=== PATIENT | female | born 1935 | race American Indian/Alaskan Native ===

== ENCOUNTER 2016-10-18 19:24 | Inpatient (IN) | payer MEDICARE, MEDICAID ==
[2016-10-18 19:24] VITALS: BMI 27.3
[2016-10-18] MEDS ORDERED: Piperacillin/Tazobact 3.375 gm 100 ML IVPB STA (19:36)
[2016-10-18] MEDS ORDERED: Sodium Chloride 0.9% 500 ML IV ONE (19:36)
--- NOTE | 2016-10-18 19:49 | C.PDOC ---
History Of Present Illness 81 year old female with a Hx of dementia, contracted with a-fib and on coumadin who was sent to the ER by [facility] for a complaint of SOB. As per [facility], patient was found mildly hypoxic and tachypneic; in the ER patient is febrile. Patient is nonverbal at baseline; however, she has not indicated at sort of physical complaint at this time. Time Seen by Provider: 10/18/16 19:33 Chief Complaint (Nursing): Shortness Of Breath History Per: Other (Residential) History/Exam Limitations: no limitations Onset/Duration Of Symptoms: Hrs Initiating Event: Other (Not Known) Current Respiratory Medications: None Associated Symptoms: Fever Recent travel outside of the [place]: No Past Medical History Reviewed: Historical Data, Nursing Documentation, Vital Signs Vital Signs: Last Vital Signs Temp 101.8 F H 10/18/16 19:30 Pulse 90 10/18/16 19:30 Resp 36 H 10/18/16 20:44 BP 108/50 L 10/18/16 19:30 Pulse Ox 100 10/18/16 21:06 - Medical History PMH: Alzheimer's Disease, Anemia, Anxiety, Arthritis, Atrial Fibrillation, CAD, Cardia Arrhythmia, Dementia, Deep Vein Thrombosis, Gastritis, HTN, Hypercholesterolemia, Pancreatitis, Peripheral Edema, Rheumatoid Arthritis, Seizures Surgical History: Endoscopy, Pacemaker - [facility] Procedures CLOSED ENDOSCOPIC BIOPSY OF LARGE INTESTINE (10/06/12) ENTERAL INFUSION OF CONCENTRATED NUT. SUBSTANCES (11/18/13) ESOPHAGOGASTRODUODENOSCOPY [EGD] W/CLOSED BIOPSY (12/08/12) INSERTION OF FEEDING DEVICE INTO STOMACH, ENDO (07/25/15) INTRODUCTION OF NUTRITIONAL INTO UP GI, VIA OPENING (07/25/15) OTHER ENDOSCOPY OF SM INTEST (12/19/14) PACKED CELL TRANSFUSION (12/14/13) PERCUTANEOUS [ENDOSCOPIC] GASTROSTOMY [PEG] (12/19/12) REPLACE GASTROSTOMY TUBE (12/19/14) VACCINATION NEC (11/18/13) VENOUS CATHETERIZATION NEC (11/18/13) Family History: States: Unknown Family Hx - Social History Hx Tobacco Use: No Hx Alcohol Use: No Hx Substance Use: No - Immunization History Hx Tetanus Toxoid Vaccination: No (no record from [facility]) Hx Influenza Vaccination: No (no record from [facility]) Hx Pneumococcal Vaccination: No (no record from [facility]) Review Of Systems Review Of Systems: ROS cannot be obtained secondary to pt's inabilty to answer questions. Physical Exam - Physical Exam Appears: Non-toxic, Other (Contracted, chronically ill female) Skin: Normal Color, Warm, Dry Head: Atraumatic, Normacephalic Oral Mucosa: Moist Neck: Normal, Supple Chest: Symmetrical, No Tenderness Cardiovascular: Rhythm Regular, No Murmur Respiratory: No Rales, No Rhonchi, No Wheezing, Other (Course breath sounds bilaterally) Gastrointestinal/Abdominal: Soft, No Tenderness Neurological/Psych: Other (Patient at baseline as per [facility]) ED Course And Treatment - Laboratory Results Result Diagrams: 10/18/16 20:18 10/18/16 20:18 O2 Sat by Pulse Oximetry: 100 (Room air) Pulse Ox Interpretation: Normal Medical Decision Making Medical Decision Making: Impression: 81 year old demented female with SOB. suspect sepsis/pna. pt baseline contracted. limited history provided. pt noted to be full code as per [facility] record Plan: * Blood work * EKG * CXR * Urinalysis * Tylenol * Vancocin * Piperacillin * IV fluids * 900: pt reassessed: satting upper 90s on nc. cxr: torterious aorta, opacity left sided. case discussed with dr vaughn. accepts tele. ekg nsr 83 no specific later al changes no interval change Disposition - Disposition Disposition: HOSPITALIZED Disposition Time: 21:05 Condition: GUARDED - Clinical Impression Clinical Impression: Sepsis, Pneumonia, Hypernatremia - Scribe Statement The provider has reviewed the documentation as recorded by the Scribjuli Ko All medical record entries made by the Tienibjuli were at my direction and personally dictated by me. I have reviewed the chart and agree that the record accurately reflects my personal performance of the history, physical exam, medical decision making, and the department course for this patient. I have also personally directed, reviewed, and agree with the discharge instructions and disposition. Decision To Admit - Pt Status Changed To: Hospital Disposition Of: Inpatient - Admit Certification Admit to Inpatient:: After my assessment, the patient will require hospitalization for at least two midnights. This is because of the severity of symptoms shown, intensity of services needed, and/or the medical risk in this patient being treated as an outpatient. - InPatient: Physician Admission Certification: I certify that this patient requires 2 or more midnights of care for the following reason:: pt with sepsis, pna, hypernatremia, needs ivf and antibiotics - . Bed Request Type: Telemetry Admitting Physician: Tha Vaughn Patient Diagnosis: Sepsis, Pneumonia, Hypernatremia
[2016-10-18 20:27] LABS: VENOUS BLOOD GAS BASE EXCESS -0.7 mmol/L (0.0-2.0); VENOUS BLOOD GAS PCO2 56 mmHg (40-60); VENOUS BLOOD PH 7.29 (7.32-7.43)
[2016-10-18] MEDS ORDERED: Piperacillin/Tazobact 3.375 gm 100 ML IVPB ONE (20:36)
[2016-10-18] MEDS ORDERED: Sodium Chloride 0.9% 1,000 ML ONE (20:36)
[2016-10-18 20:37] LABS: INR 2.7
[2016-10-18 20:38] LABS: BILIRUBIN,TOTAL 0.7 mg/dL (0.2-1.3)
[2016-10-18 20:39] LABS: CALCIUM 8.4 mg/dl (8.6-10.4); TOTAL PROTEIN 7.7 g/dL (6.3-8.3)
[2016-10-18 20:49] LABS: POTASSIUM 5.9 mmol/L (3.6-5.2)
[2016-10-18 20:51] LABS: TROPONIN I 0.018 ng/mL (0.00-0.120)
[2016-10-18 20:52] LABS: BASO % 0.2 % (0.0-2.0); EOS % 0.1 % (0.0-4.0); HEMATOCRIT 47.9 % (34.0-47.0); LYMPH % 22.9 % (20.0-40.0); MONO # 0.7 K/uL (0.0-0.8); MONO % 8.2 % (0.0-10.0); NRBC % 0.1 % (0.0-2.0); RED CELL DISTRIBUTION WIDTH 18.4 % (11.5-14.5); WHITE BLOOD COUNT 8.6 K/uL (4.8-10.8)
[2016-10-18 21:00] LABS: TRANSITIONAL EPITHIAL < 1 /hpf (0-3); URINE BACTERIA FEW (<OCC); URINE BILIRUBIN NEGATIVE (NEGATIVE); URINE BLOOD NEGATIVE (NEGATIVE); URINE COLOR YELLOW (YELLOW); URINE GLUCOSE (UA) NORMAL (Normal); URINE KETONE NEGATIVE (NEGATIVE); URINE LEUKOCYTE ESTERASE TRACE Leu/uL (Negative); URINE PROTEIN 2+ mg/dL (NEGATIVE); WBC URINE 12 /hpf (0-5)
[2016-10-18] MEDS ORDERED: Acetaminophen 650mg/20.3ml solution UD GT PRN (21:07)
[2016-10-18] MEDS ORDERED: MAGNESIUM HYDROXIDE PO PRN (21:07)
[2016-10-18] MEDS ORDERED: Vancomycin 1 GM 1 GM/250 ML BAG IVPB ONE (21:14)
[2016-10-18] MEDS ORDERED: Sodium Chloride 0.45% 1,000 ML IV SCH (22:00)
[2016-10-18] MEDS ORDERED: LAMOTRIGINE 25 MG GT SCH (22:00)
[2016-10-19] MEDS: Piperacillin/Tazobact 3.375 GM in Sodium Chloride 100 ML IVPB SCH ×2 (02:07→09:14)
[2016-10-19 08:01] LABS: INR 2.9
[2016-10-19 08:02] LABS: POTASSIUM 4.7 mmol/L (3.6-5.2)
[2016-10-19 08:04] LABS: ALB/GLOB RATIO 0.9 (1.0-2.1); BILIRUBIN,TOTAL 0.8 mg/dL (0.2-1.3); TOTAL PROTEIN 6.5 g/dL (6.3-8.3)
[2016-10-19 08:05] LABS: CALCIUM 8.1 mg/dl (8.6-10.4)
[2016-10-19] MEDS: Albuterol 0.042% Inhal Sol (1.25 mg/3 mL) UD INH SCH ×3 (08:05→19:32)
[2016-10-19 08:07] LABS: BASO % 0.4 % (0.0-2.0); EOS # 0.1 K/uL (0.0-0.7); EOS % 0.8 % (0.0-4.0); HEMATOCRIT 39.3 % (34.0-47.0); LYMPH # 0.9 K/uL (1.0-4.3); LYMPH % 10.3 % (20.0-40.0); MEAN CELL VOLUME 88.6 fL (81.0-99.0); MEAN CORPUSCULAR HEMOGLOBIN 26.5 pg (27.0-31.0); MEAN CORPUSCULAR HGB CONC 29.9 g/dL (33.0-37.0); MONO # 0.4 K/uL (0.0-0.8); MONO % 4.9 % (0.0-10.0); RED CELL DISTRIBUTION WIDTH 18.2 % (11.5-14.5)
[2016-10-19] MEDS ORDERED: VALPROIC ACID PO SCH (10:00)
[2016-10-19] MEDS ORDERED: Home Med 1 UNIT (Simvastatin [Simvastatin] 5 MG) GT SCH (10:00)
[2016-10-19] MEDS ORDERED: AMINO ACIDS PO SCH (10:00)
[2016-10-19] MEDS ORDERED: PROTEIN HYDROLYS PO SCH (10:00)
[2016-10-19] MEDS ORDERED: FOLIC ACID 1 MG GT SCH (10:00)
--- NOTE | 2016-10-19 10:32 | RAD ---
PROCEDURE: CHEST RADIOGRAPH, 1 VIEW HISTORY: chest pain COMPARISON: Comparison chest 08/02/2015 FINDINGS: LUNGS: Poor inspiration with low lung volumes, minor crowded bronchovascular markings and mild bibasilar atelectasis. Developing lower lobe infiltrates could be excluded followup radiographs. PLEURA: No pneumothorax or pleural fluid seen. CARDIOVASCULAR: Heart is enlarged. 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 Follow-up of CT scan of the chest could be performed to confirm. No change single lead pacemaker. OSSEOUS STRUCTURES: No significant abnormalities. VISUALIZED UPPER ABDOMEN: Normal. OTHER FINDINGS: None. IMPRESSION: Poor inspiration with low lung volumes, minor crowded bronchovascular markings and mild bibasilar atelectasis. Developing lower lobe infiltrates could be excluded followup radiographs. . Follow-up CT scan of the chest could be performed to confirm. Note this report was placed in PA review folder followup.
[2016-10-19] MEDS: Azithromycin 500 MG in Sodium Chloride 0.9% 250 ML IVPB SCH (10:36)
[2016-10-19] MEDS: Multiple Vitamins Oral Solution PO SCH (11:49)
[2016-10-19] MEDS: Piperacill/Tazo 3.375gm in Dex 3.375 GM/50 ML BAG IVPB SCH ×2 (14:06→20:28)
[2016-10-19] MEDS ORDERED: Magnesium Hydroxide Susp 30 ml UD PO PRN (14:30)
[2016-10-19] MEDS ORDERED: Valproic Acid 250 mg/5 ml UD Cup PO SCH (15:00)
--- NOTE | 2016-10-19 15:51 | CP.PCM.CON ---
History of Present Illness - History of Present Illness History of Present Illness: 81 year old female with a Hx of dementia, contracted with a-fib and on coumadin who was sent to the ER by shelter for a complaint of SOB. As per shelter, patient was found mildly hypoxic and tachypneic; in the ER patient is febrile. Patient is nonverbal at baseline; however, she has not indicated at sort of physical complaint at this time. - Medical History PMH: Alzheimer's Disease, Anemia, Anxiety, Arthritis, Atrial Fibrillation, CAD, Cardia Arrhythmia, Dementia, Deep Vein Thrombosis, Gastritis, HTN, Hypercholesterolemia, Pancreatitis, Peripheral Edema, Rheumatoid Arthritis, Seizures Surgical History: Endoscopy, Pacemaker - [facility] Procedures CLOSED ENDOSCOPIC BIOPSY OF LARGE INTESTINE (10/06/12) ENTERAL INFUSION OF CONCENTRATED NUT. SUBSTANCES (11/18/13) ESOPHAGOGASTRODUODENOSCOPY [EGD] W/CLOSED BIOPSY (12/08/12) INSERTION OF FEEDING DEVICE INTO STOMACH, ENDO (07/25/15) INTRODUCTION OF NUTRITIONAL INTO UP GI, VIA OPENING (07/25/15) OTHER ENDOSCOPY OF SM INTEST (12/19/14) PACKED CELL TRANSFUSION (12/14/13) PERCUTANEOUS [ENDOSCOPIC] GASTROSTOMY [PEG] (12/19/12) REPLACE GASTROSTOMY TUBE (12/19/14) VACCINATION NEC (11/18/13) VENOUS CATHETERIZATION NEC (11/18/13) Review of Systems - Review of Systems Systems not reviewed;Unavailable: Altered Mental Status - Constitutional Constitutional: absent: As Per HPI, Anorexia, Chills, Daytime Sleepiness, Excessive Sweating, Fatigue, Fever, Frequent Falls, Headache, Increased Appetite , Lethargy, Malaise, Night Sweats, Snoring, Sleep Apnea, Weight Gain, Weight Loss, Weakness, Other - EENT Eyes: absent: As Per HPI, Blind Spots, Blurred Vision, Change in Vision, Decreased Night Vision, Diplopia, Discharge, Dry Eye, Exophthalmos, Floaters, Irritation, Itchy Eyes, Loss of Peripheral Vision, Pain, Photophobia, Requires Corrective Lenses, Sees Flashes, Spots in Vision, Tunnel Vision, Other Visual Disturbances, Loss of Vision, Other Ears: absent: As Per HPI, Decreased Hearing, Ear Discharge, Ear Pain, Tinnitus, Abnormal Hearing, Disequilibrium, Dizziness, Other Nose/Mouth/Throat: absent: As Per HPI, Epistaxis, Nasal Congestion, Nasal Discharge, Nasal Obstruction, Nasal Trauma, Nose Pain, Post Nasal Drip, Sinus Pain, Sinus Pressure, Bleeding Gums, Change in Voice, Dental Pain, Dry Mouth, Dysphagia, Halitosis, Hoarsness, Lip Swelling, Mouth Lesions, Mouth Pain, Odynophagia, Sore Throat, Throat Swelling, Tongue Swelling, Facial Pain, Neck Pain, Neck Mass, Other - Breasts Breasts: absent: As Per HPI, Change in Shape, Mass, Pain, Nipple Discharge, Nipple Inversion, Skin Changes, Swelling, Other - Cardiovascular Cardiovascular: As Per HPI - Respiratory Respiratory: As Per HPI, Cough, Dyspnea - Gastrointestinal Gastrointestinal: absent: As Per HPI, Abdominal Pain, Belching, Bloating, Change in Bowel Habits, Change in Stool Character, Coffee Ground Emesis, Constipation, Cramping, Diarrhea, Dyspepsia, Dysphagia, Early Satiety, Excessive Flatus, Fecal Incontinence, Heartburn, Hematemesis, Hematochezia, Loose Stools, Melena, Nausea, Odynophagia, Temesmus, Vomiting, Other - Reproductive: Female Reproductive:Female: absent: As Per HPI, Amenorrhea, Amenorrhea/ Control, Currently Menstual, Cycle <21 Days, Cycle >35 Days, Cycle Variable, Menses 1-7 Days, Menses >/= 8 Days, Menses Variable, Cycle > 4 Weeks Between, No Menses for 6 Months, Heavy Menses, Light Menses, Normal Menses, Spotting Between Cycles , S/P Hysterectomy, Menopausal, Post Menopausal, Premenarche, Abnormal Vaginal Bleeding, Dysmenorrhea, Dyspareunia, Genital Lesions, Genital Pruritis, Pelvic Pain, Prolapse Symptoms, Sexual Dysfunction, Vaginal Discharge, Vaginal Dryness , Vaginal Odor, Vaginal Pruritis, Other - Menstruation Menstruation: absent: As Per HPI, Amenorrhea, Amenorrhea/ Control, Currently Menstual, Cycle <21 Days, Cycle >35 Days, Cycle Variable, Menses 1-7 Days, Menses >/= 8 Days, Menses Variable, Cycle > 4 Weeks Between, No Menses for 6 Months, Heavy Menses, Light Menses, Normal Menses, Spotting Between Cycles , S/P Hysterectomy, Menopausal, Post Menopausal, Premenarche, Abnormal Vaginal Bleeding, Dysmenorrhea, Other - Musculoskeletal Musculoskeletal: absent: As Per HPI, Abnormal Gait, Arthralgias, Atrophy, Back Pain, Deformity, Joint Swelling, Limited Range of Motion, Loss of Height, Muscle Cramps, Muscle Weakness, Myalgias, Neck Pain, Numbness, Radiating Pain into Limb, Stiffness, Tingling, Other - Integumentary Integumentary: As Per HPI - Neurological Neurological: As Per HPI - Psychiatric Psychiatric: absent: As Per HPI, Abnormal Sleep Pattern, Anhedonia, Anxiety, Auditory Hallucinations, Behavioral Changes, Change in Appetite, Change in Libido, Confusion, Depression, Difficulty Concentrating, Hallucinations, Homicidal Ideation, Hopelessness, Irritability, Memory Loss, Mood Swings, Panic Attacks, Paranoia, Suicidal Ideation, Visual Hallucinations, Tactile Hallucinations, Other - Endocrine Endocrine: absent: As Per HPI, Change in Body Appearance, Change in Libido, Cold Intolorance, Deepening of Voice, Excessive Sweating, Fatigue, Flushing, Heat Intolorance, Increase in Ring/Shoe/Hat Size, Palpitations, Polydipsia, Polyphagia, Polyuria, Other - Hematologic/Lymphatic Hematologic: absent: As Per HPI, Easy Bleeding, Easy Bruising, Lymphadenopathy, Other Past Patient History - Infectious Disease Hx of Infectious Diseases: None - Past Medical History & Family History Past Medical History?: Yes - Past Social History Smoking Status: Never Smoked - CARDIAC Hx Atrial Fibrillation: Yes Hx Cardia Arrhythmia: Yes Hx Hypercholesterolemia: Yes Hx Hypertension: Yes Hx Pacemaker: Yes Hx Peripheral Edema: Yes - PULMONARY Hx Respiratory Disorders: No - NEUROLOGICAL Hx Alzheimer's Disease: Yes Hx Dementia: Yes Hx Seizures: Yes - HEENT Hx HEENT Problems: No - RENAL Hx Chronic Kidney Disease: No - ENDOCRINE/METABOLIC Hx Endocrine Disorders: No - HEMATOLOGICAL/ONCOLOGICAL Hx Anemia: Yes - INTEGUMENTARY Hx Dermatological Problems: No - MUSCULOSKELETAL/RHEUMATOLOGICAL Hx Arthritis: Yes Hx Falls: No - GASTROINTESTINAL Hx Gastritis: Yes Hx Pancreatitis: Yes - GENITOURINARY/GYNECOLOGICAL Hx Genitourinary Disorders: Yes Hx Incontinence: Yes 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 - PSYCHIATRIC Hx Anxiety: Yes Hx Substance Use: No - SURGICAL HISTORY Hx Surgeries: Yes Other/Comment: PEG INSERTION - ANESTHESIA Hx Anesthesia: Yes Hx Anesthesia Reactions: No Hx Malignant Hyperthermia: No Meds Allergies/Adverse Reactions: Allergies Allergy/AdvReac Type Severity Reaction Status Date / Time No Known Allergies Allergy Verified 10/18/16 19:38 - Medications Medications: Current Medications Acetaminophen (Tylenol 650mg/20.3ml Solution Ud) 650 mg GT Q6 PRN PRN Reason: Temperature Albuterol Sulfate (Albuterol 0.042% Inhal Carmen (1.25mg/3ml) Ud) 1.25 mg INH RQ6 [facility] Last Admin: 10/19/16 13:20 Dose: 1.25 mg Folic Acid (Folic Acid) 1 mg GT DAILY [facility] Sodium Chloride (Sodium Chloride 0.45%) 1,000 mls @ 75 mls/hr IV .[id number] [facility] Last Admin: 10/18/16 22:46 Dose: 75 mls/hr Azithromycin 500 mg/ Sodium (Chloride) 250 mls @ 250 mls/hr IVPB DAILY [facility] Last Admin: 10/19/16 10:36 Dose: 250 mls/hr Piperacillin Sod/Tazobactam Sod (Zosyn 3.375 Gm Iv Premix) 3.375 gm in 50 mls @ 100 mls/hr IVPB Q6H [facility] Last Admin: 10/19/16 14:06 Dose: 100 mls/hr Lamotrigine (Lamictal) 25 mg GT Q12 [facility] Magnesium Hydroxide (Milk Of Magnesia) 30 ml PO DAILY PRN Metoprolol Tartrate (Lopressor) 25 mg GT Q12 [facility] Last Admin: 10/19/16 11:48 Dose: 25 mg Multivitamins/Vitamin C (Multi-Delyn Liquid) 5 ml PO DAILY [facility] Last Admin: 10/19/16 11:49 Dose: 5 ml Pantoprazole Sodium (Protonix Susp) 40 mg PO DAILY [facility] Rosuvastatin Calcium (Crestor) 2.5 mg PO HS [facility] Warfarin Sodium (Coumadin) 3 mg PO DAILY@1800 [facility] Physical Exam - Constitutional Appears: Non-toxic, Confused, Cachectic, Chronically Ill - Head Exam Head Exam: ATRAUMATIC, NORMAL INSPECTION, NORMOCEPHALIC - Eye Exam Eye Exam: EOMI, PERRL. absent: Scleral icterus - ENT Exam ENT Exam: Mucous Membranes Dry, Normal External Ear Exam - Neck Exam Neck exam: Negative for: Lymphadenopathy, Thyromegaly - Respiratory Exam Respiratory Exam: Decreased Breath Sounds, Rhonchi - Cardiovascular Exam Cardiovascular Exam: REGULAR RHYTHM, +S1, +S2 - GI/Abdominal Exam GI & Abdominal Exam: Diminished Bowel Sounds, Soft. absent: Tenderness - Rectal Exam Rectal Exam: Deferred - Exam Exam: NORMAL INSPECTION - Extremities Exam Extremities exam: Positive for: pedal edema, pedal pulses present. Negative for : calf tenderness, tenderness - Back Exam Back exam: absent: CVA tenderness (L), CVA tenderness (R), paraspinal tenderness - Neurological Exam Neurological exam: Alert, Altered, CN II-XII Intact - Psychiatric Exam Psychiatric exam: Depressed - Skin Skin Exam: Dry, Intact Results - Vital Signs Recent Vital Signs: Last Vital Signs Temp 98.5 F 10/19/16 08:54 Pulse 84 10/19/16 09:20 Resp 20 10/19/16 08:54 BP 142/76 10/19/16 11:48 Pulse Ox 96 10/19/16 08:54 - Labs Result Diagrams: 10/19/16 07:40 10/19/16 07:40 Labs: Laboratory Results - last 24 hr 10/19/16 10/19/16 10/19/16 06:31 07:40 07:40 WBC 9.0 RBC 4.43 Hgb 11.7 D Hct 39.3 MCV 88.6 MCH 26.5 L MCHC 29.9 L RDW 18.2 H Plt Count 138 MPV 11.0 Neut % (Auto) 83.6 H Lymph % (Auto) 10.3 L Whitfield % (Auto) 4.9 Eos % (Auto) 0.8 Baso % (Auto) 0.4 Neut # 7.6 H Lymph # 0.9 L Whitfield # 0.4 Eos # 0.1 Baso # 0.0 PT 34.3 H* INR 2.9 APTT 44 H D Sodium Potassium Chloride Carbon Dioxide Anion Gap BUN Creatinine Est GFR ( Amer) Est GFR (Non-Af Amer) POC Glucose (mg/dL) 143 H Random Glucose Calcium Total Bilirubin AST ALT Alkaline Phosphatase Total Protein Albumin Globulin Albumin/Globulin Ratio 10/19/16 07:40 WBC RBC Hgb Hct MCV MCH MCHC RDW Plt Count MPV Neut % (Auto) Lymph % (Auto) Whitfield % (Auto) Eos % (Auto) Baso % (Auto) Neut # Lymph # Whitfield # Eos # Baso # PT INR APTT Sodium 157 H Potassium 4.7 Chloride 117 H Carbon Dioxide 25 Anion Gap 20 BUN 53 H Creatinine 1.5 H Est GFR ( Amer) 41 Est GFR (Non-Af Amer) 33 POC Glucose (mg/dL) Random Glucose 127 H Calcium 8.1 L Total Bilirubin 0.8 AST 31 ALT 33 Alkaline Phosphatase 142 H Total Protein 6.5 Albumin 3.1 L D Globulin 3.4 Albumin/Globulin Ratio 0.9 L Assessment & Plan (1) Pneumonia Status: Acute (2) Sepsis Status: Acute - Assessment and Plan (Free Text) Assessment: cont hydrstion and iv antibiotics await cultures and serologies prognosis guarded
[2016-10-19] MEDS: Rosuvastatin Calcium 2.5 mg Tab PO SCH (21:00)
[2016-10-20] MEDS: Albuterol 0.042% Inhal Sol (1.25 mg/3 mL) UD INH SCH ×3 (01:45→19:52)
[2016-10-20] MEDS: Piperacill/Tazo 3.375gm in Dex 3.375 GM/50 ML BAG IVPB SCH ×4 (03:13→21:28)
[2016-10-20] MEDS: Multiple Vitamins Oral Solution PO SCH (09:10)
[2016-10-20] MEDS: Pantoprazole 40 mg Susp UD PO SCH (09:10)
[2016-10-20] MEDS: Azithromycin 500 MG in Sodium Chloride 0.9% 250 ML IVPB SCH (09:11)
[2016-10-20] MEDS ORDERED: PROTEIN HYDROLYS PO SCH (10:00)
[2016-10-20] MEDS ORDERED: AMINO ACIDS PO SCH (10:00)
--- NOTE | 2016-10-20 11:44 | CP.PCM.PN ---
Subjective - Date & Time of Evaluation Date of Evaluation: 10/20/16 Time of Evaluation: 06:00 - Subjective Subjective: cultures neg thus far cont rx as per Dr Petersen Objective - Vital Signs/Intake and Output Vital Signs (last 24 hours): Temp Pulse Resp BP Pulse Ox 97.5 F L 94 H 18 111/79 97 10/20/16 07:50 10/20/16 07:50 10/20/16 07:50 10/20/16 09:10 10/20/16 07:50 Intake and Output: 10/20/16 10/20/16 06:59 18:59 Intake Total 2060 Output Total 600 Balance 1460 - Medications Medications: Current Medications Acetaminophen (Tylenol 650mg/20.3ml Solution Ud) 650 mg GT Q6 PRN PRN Reason: Temperature Albuterol Sulfate (Albuterol 0.042% Inhal Carmen (1.25mg/3ml) Ud) 1.25 mg INH RQ6 [facility] Last Admin: 10/20/16 08:45 Dose: 1.25 mg Folic Acid (Folic Acid) 1 mg GT DAILY [facility] Last Admin: 10/20/16 09:09 Dose: 1 mg Azithromycin 500 mg/ Sodium (Chloride) 250 mls @ 250 mls/hr IVPB DAILY [facility] Last Admin: 10/20/16 09:11 Dose: 250 mls/hr Piperacillin Sod/Tazobactam Sod (Zosyn 3.375 Gm Iv Premix) 3.375 gm in 50 mls @ 100 mls/hr IVPB Q6H [facility] Last Admin: 10/20/16 08:10 Dose: 100 mls/hr Dextrose (Dextrose 5% In Water 1000 Ml) 1,000 mls @ 70 mls/hr IV .[id number] [facility] Last Admin: 10/19/16 18:47 Dose: 70 mls/hr Lamotrigine (Lamictal) 25 mg GT Q12 [facility] Last Admin: 10/20/16 09:10 Dose: 25 mg Magnesium Hydroxide (Milk Of Magnesia) 30 ml PO DAILY PRN Metoprolol Tartrate (Lopressor) 25 mg GT Q12 [facility] Last Admin: 10/20/16 09:10 Dose: 25 mg Multivitamins/Vitamin C (Multi-Delyn Liquid) 5 ml PO DAILY [facility] Last Admin: 10/20/16 09:10 Dose: 5 ml Pantoprazole Sodium (Protonix Susp) 40 mg PO DAILY [facility] Last Admin: 10/20/16 09:10 Dose: 40 mg Rosuvastatin Calcium (Crestor) 2.5 mg PO HS [facility] Last Admin: 10/19/16 21:00 Dose: 2.5 mg Warfarin Sodium (Coumadin) 3 mg PO DAILY@1800 [facility] Last Admin: 10/19/16 18:47 Dose: 3 mg - Labs Labs: 10/19/16 07:40 10/19/16 07:40 PT 34.3 SECONDS (9.7-12.2) H* 10/19/16 07:40 INR 2.9 10/19/16 07:40 APTT 44 SECONDS (21-34) H D 10/19/16 07:40 Assessment and Plan (1) Pneumonia Status: Acute (2) Sepsis Status: Acute
[2016-10-20 14:09] LABS: POTASSIUM 4.3 mmol/L (3.6-5.2)
[2016-10-20 14:13] LABS: CALCIUM 8.4 mg/dl (8.6-10.4)
--- NOTE | 2016-10-20 17:31 | HP ---
HISTORY OF PRESENT ILLNESS: The patient is a 81-year-old female, a detention resident with history of Alzheimer's, atrial fibrillations, CVA, pelvic hernia, hypertension and hyperlipidemia. The patient was seen by me in the detention for the patient was somewhat short of breath and diaphoretic. I thought the patient has a decrease in temperature. At that time, I requested the patient to be transferred to the emergency room for evaluation and admission. ALLERGIES: THE PATIENT HAS NO KNOWN ALLERGIES. PAST MEDICAL HISTORY: Alzheimer's, anemia, arthritis, atrial fibrillation, coronary artery disease, hypertension, seizure and dementia. SOCIAL HISTORY: The patient is a detention resident and no smoking or alcohol abuse. REVIEW OF SYSTEMS: The patient now is in no apparent distress. In the detention, the patient was wheezing and is short of breath. The rest of the review of systems could not be obtained because the patient is being aphasic. PHYSICAL EXAMINATION GENERAL: Patient with *------* stimuli, mumbling some words. VITAL SIGNS: Blood pressure 142/76, pulse 64, respirations 20, temperature 98.5. HEENT: The patient is congested. Eyes, there is some protrusion of the eye, exophthalmos. NECK: Stiff. LUNGS: Poor inspiratory effort. *------* can be heard. HEART: Tachycardic. ABDOMEN: Soft. PEG is in place. Positive bowel sounds. EXTREMITIES: There is contracture of the extremities, of the hips, knees, elbows, and wrists and also *------* friction of the fingers. LABORATORY DATA: The blood test was done; sodium level of 155, today 157; potassium 5.9; chloride 114; BUN of 67; creatinine 1.5; and glucose 158 *------* chemistry. The patient had a WBC of 8.6, hemoglobin 14.9, hematocrit 47.9 and platelets 162, and today WBC of 9, hemoglobin of 11.7, hematocrit 39.3 and platelets 138. Coagulation showed PT is 31.9, INR 2.7 and now the PT is 34.3 and INR 2.9. *------* was put on hold. The patient's chest x-ray has revealed lower lobe infiltrate. IMPRESSION: The patient was admitted with diagnoses of; 1. Pneumonia. 2. Hypoxemia. 3. Atrial fibrillation. 4. Asthma. 5. Alzheimer's dementia. 6. Gastritis. 7. Severe arthritis. PLAN: The patient had a consult with Dr. Ray, Infectious Disease, so we asked Dr. Flor psychiatrist to evaluate the condition and the patient has history of seizure, so we will continue the current medication and the patient will continue therapy. Tha Petersen MD
--- NOTE | 2016-10-20 18:41 | CP.PCM.CON ---
History of Present Illness - History of Present Illness History of Present Illness: CHART REVIEWED, PT SEEN AND EXAMINED, . NOT NOTIFIED 81 YO B FEMALE WITH A HX DEMENTIA, AFIB, CAD, +PPM, HTN, RA , SZ, DVT, ADM FROM [place] 10/18/16 WITH INCREASED MOD SOB AT REST X 1 DAY, +FEVER. NO COUGH. PT NONVERBAL. NO FURTHER HX AVAILABE. Review of Systems - Review of Systems Systems not reviewed;Unavailable: Altered Mental Status All systems: reviewed and no additional remarkable complaints except - Respiratory Respiratory: Cough, Dyspnea - Musculoskeletal Musculoskeletal: Limited Range of Motion - Neurological Neurological: Confusion Past Patient History - Infectious Disease Hx of Infectious Diseases: None - Past Medical History & Family History Past Medical History?: Yes Past Family History: Reviewed and not pertinent - Past Social History Smoking Status: Never Smoked Home Situation {Lives}: Shelter - CARDIAC Hx Atrial Fibrillation: Yes Hx Cardia Arrhythmia: Yes Hx Hypercholesterolemia: Yes Hx Hypertension: Yes Hx Pacemaker: Yes Hx Peripheral Edema: Yes - PULMONARY Hx Respiratory Disorders: No - NEUROLOGICAL Hx Alzheimer's Disease: Yes Hx Dementia: Yes Hx Seizures: Yes - HEENT Hx HEENT Problems: No - RENAL Hx Chronic Kidney Disease: No - ENDOCRINE/METABOLIC Hx Endocrine Disorders: No - HEMATOLOGICAL/ONCOLOGICAL Hx Anemia: Yes - INTEGUMENTARY Hx Dermatological Problems: No - MUSCULOSKELETAL/RHEUMATOLOGICAL Hx Arthritis: Yes Hx Falls: No - GASTROINTESTINAL Hx Gastritis: Yes Hx Pancreatitis: Yes - GENITOURINARY/GYNECOLOGICAL Hx Genitourinary Disorders: Yes Hx Incontinence: Yes 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 - PSYCHIATRIC Hx Anxiety: Yes Hx Substance Use: No - SURGICAL HISTORY Hx Surgeries: Yes Other/Comment: PEG INSERTION - ANESTHESIA Hx Anesthesia: Yes Hx Anesthesia Reactions: No Hx Malignant Hyperthermia: No Meds Home Medications: Home Medication List Medication Instructions Recorded Confirmed Type Albuterol 0.042% [Albuterol 0.042% 1.25 mg INH RQ6 10/21/16 Rx Inhal Carmen (1.25mg/3ml) UD] Amino Acids/Protein Hydrolys 30 ml PO DAILY 10/21/16 Rx [Pro-Stat Profile Liquid Packet] Folic Acid 1 mg GT DAILY 10/21/16 Rx Levofloxacin [Levaquin] 500 mg PO DAILY #7 tablet 10/21/16 Rx Metoprolol Tartrate [Lopressor] 25 mg GT Q12 tab 10/21/16 Rx Multivitamin [Multi-Delyn Liquid] 5 ml PO DAILY syr 10/21/16 Rx lamoTRIgine [Lamictal] 25 mg GT Q12 tab 10/21/16 Rx Allergies/Adverse Reactions: Allergies Allergy/AdvReac Type Severity Reaction Status Date / Time No Known Allergies Allergy Verified 10/18/16 19:38 - Medications Medications: Current Medications Acetaminophen (Tylenol 650mg/20.3ml Solution Ud) 650 mg GT Q6 PRN PRN Reason: Temperature Albuterol Sulfate (Albuterol 0.042% Inhal Carmen (1.25mg/3ml) Ud) 1.25 mg INH RQ6 [facility] Last Admin: 10/20/16 08:45 Dose: 1.25 mg Folic Acid (Folic Acid) 1 mg GT DAILY [facility] Last Admin: 10/20/16 09:09 Dose: 1 mg Azithromycin 500 mg/ Sodium (Chloride) 250 mls @ 250 mls/hr IVPB DAILY [facility] Last Admin: 10/20/16 09:11 Dose: 250 mls/hr Piperacillin Sod/Tazobactam Sod (Zosyn 3.375 Gm Iv Premix) 3.375 gm in 50 mls @ 100 mls/hr IVPB Q6H [facility] Last Admin: 10/20/16 14:06 Dose: 100 mls/hr Dextrose (Dextrose 5% In Water 1000 Ml) 1,000 mls @ 70 mls/hr IV .[id number] [facility] Last Admin: 10/20/16 16:26 Dose: 70 mls/hr Lamotrigine (Lamictal) 25 mg GT Q12 [facility] Last Admin: 10/20/16 09:10 Dose: 25 mg Magnesium Hydroxide (Milk Of Magnesia) 30 ml PO DAILY PRN Metoprolol Tartrate (Lopressor) 25 mg GT Q12 [facility] Last Admin: 10/20/16 09:10 Dose: 25 mg Multivitamins/Vitamin C (Multi-Delyn Liquid) 5 ml PO DAILY [facility] Last Admin: 10/20/16 09:10 Dose: 5 ml Pantoprazole Sodium (Protonix Susp) 40 mg PO DAILY [facility] Last Admin: 10/20/16 09:10 Dose: 40 mg Rosuvastatin Calcium (Crestor) 2.5 mg PO HS [facility] Last Admin: 10/19/16 21:00 Dose: 2.5 mg Physical Exam - Constitutional Appears: Chronically Ill - Head Exam Head Exam: ATRAUMATIC, NORMOCEPHALIC - Eye Exam Eye Exam: Normal appearance - ENT Exam ENT Exam: Mucous Membranes Dry - Respiratory Exam Respiratory Exam: Decreased Breath Sounds. absent: Accessory Muscle Use - Cardiovascular Exam Cardiovascular Exam: Irregular Rhythm - GI/Abdominal Exam GI & Abdominal Exam: Soft Additional comments: PEG - Rectal Exam Rectal Exam: Deferred - Extremities Exam Additional comments: UE/LE CONTRACTURES., NO EDEMA, CHRONIC CHANGES. BILAT - Neurological Exam Additional comments: AWAKE, NONVERBAL. CONTRACUTURES UE/ LE Results - Vital Signs Recent Vital Signs: Last Vital Signs Temp 97.2 F L 10/20/16 15:55 Pulse 66 10/20/16 15:55 Resp 20 10/20/16 15:55 BP 123/65 10/20/16 15:55 Pulse Ox 93 L 10/20/16 15:55 - Labs Result Diagrams: 10/21/16 09:18 10/21/16 09:18 Labs: Laboratory Results - last 24 hr 10/19/16 10/19/16 10/19/16 08:41 21:07 23:54 Sodium Potassium Chloride Carbon Dioxide Anion Gap BUN Creatinine Est GFR ( Amer) Est GFR (Non-Af Amer) POC Glucose (mg/dL) 186 H Random Glucose Calcium Urine Osmolality 715 Ur Random Sodium 48 Ur Random Potassium 48.4 10/20/16 10/20/16 10/20/16 06:53 10:59 13:58 Sodium 152 H Potassium 4.3 Chloride 113 H Carbon Dioxide 23 Anion Gap 20 BUN 37 H Creatinine 1.2 Est GFR ( Amer) 52 Est GFR (Non-Af Amer) 43 POC Glucose (mg/dL) 146 H 137 H Random Glucose 142 H Calcium 8.4 L Urine Osmolality Ur Random Sodium Ur Random Potassium 10/20/16 16:14 Sodium Potassium Chloride Carbon Dioxide Anion Gap BUN Creatinine Est GFR ( Amer) Est GFR (Non-Af Amer) POC Glucose (mg/dL) 168 H Random Glucose Calcium Urine Osmolality Ur Random Sodium Ur Random Potassium Assessment & Plan (1) Respiratory failure Status: Acute (2) Atrial fibrillation Status: Acute (3) Hypertension Status: Acute (4) Hypernatremia Status: Acute (5) Pneumonia Status: Acute (6) Chronic renal insufficiency, stage II (mild) Status: Acute (7) Dementia Status: Acute - Assessment and Plan (Free Text) Assessment: 81 YO FEMALE WITH A HX MULT MED PROBS ADM WITH ACUTE RESP FAILURE, HYPOXEMIC, SEPSIS, ?ASP PNA, UNDERLYING SEVERE DEMENTIA., CONT EMPIRIC AB., CONT AGGRESSIVE PULM TOILET., WITH NEB BD., SUCTIONING PRN., ASP PRECAUTIONS. CXR REVIEWED. MONITOR O2 SAT. DVT PROPHYLAXIS.PROG POOR. DISCUSSED WITH STAFF.
--- NOTE | 2016-10-20 19:46 | CP.PCM.CON ---
History of Present Illness - History of Present Illness History of Present Illness: pt seen and examined, full consult is dictated #[id number] 1. hypernatremia 2. prerenal azotemia 3. dehydration 4. s/p fever, r/o sepsis 5. htn 6. cad c/w ivf d5w at 70-80 ml/hr free water by peg 200 ml q 6 hrs daily bmp c/w iv abx, f/u c/s Past Patient History - Infectious Disease Hx of Infectious Diseases: None - Past Medical History & Family History Past Medical History?: Yes Past Family History: Reviewed and not pertinent - Past Social History Smoking Status: Never Smoked Home Situation {Lives}: [facility] - CARDIAC Hx Atrial Fibrillation: Yes Hx Cardia Arrhythmia: Yes Hx Hypercholesterolemia: Yes Hx Hypertension: Yes Hx Pacemaker: Yes Hx Peripheral Edema: Yes - PULMONARY Hx Respiratory Disorders: No - NEUROLOGICAL Hx Alzheimer's Disease: Yes Hx Dementia: Yes Hx Seizures: Yes - HEENT Hx HEENT Problems: No - RENAL Hx Chronic Kidney Disease: No - ENDOCRINE/METABOLIC Hx Endocrine Disorders: No - HEMATOLOGICAL/ONCOLOGICAL Hx Anemia: Yes - INTEGUMENTARY Hx Dermatological Problems: No - MUSCULOSKELETAL/RHEUMATOLOGICAL Hx Arthritis: Yes Hx Falls: No - GASTROINTESTINAL Hx Gastritis: Yes Hx Pancreatitis: Yes - GENITOURINARY/GYNECOLOGICAL Hx Genitourinary Disorders: Yes Hx Incontinence: Yes 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 - PSYCHIATRIC Hx Anxiety: Yes Hx Substance Use: No - SURGICAL HISTORY Hx Surgeries: Yes Other/Comment: PEG INSERTION - ANESTHESIA Hx Anesthesia: Yes Hx Anesthesia Reactions: No Hx Malignant Hyperthermia: No Meds Allergies/Adverse Reactions: Allergies Allergy/AdvReac Type Severity Reaction Status Date / Time No Known Allergies Allergy Verified 10/18/16 19:38 - Medications Medications: Current Medications Acetaminophen (Tylenol 650mg/20.3ml Solution Ud) 650 mg GT Q6 PRN PRN Reason: Temperature Albuterol Sulfate (Albuterol 0.042% Inhal Carmen (1.25mg/3ml) Ud) 1.25 mg INH RQ6 [facility] Last Admin: 10/20/16 08:45 Dose: 1.25 mg Folic Acid (Folic Acid) 1 mg GT DAILY [facility] Last Admin: 10/20/16 09:09 Dose: 1 mg Azithromycin 500 mg/ Sodium (Chloride) 250 mls @ 250 mls/hr IVPB DAILY [facility] Last Admin: 10/20/16 09:11 Dose: 250 mls/hr Piperacillin Sod/Tazobactam Sod (Zosyn 3.375 Gm Iv Premix) 3.375 gm in 50 mls @ 100 mls/hr IVPB Q6H [facility] Last Admin: 10/20/16 14:06 Dose: 100 mls/hr Dextrose (Dextrose 5% In Water 1000 Ml) 1,000 mls @ 70 mls/hr IV .[id number] [facility] Last Admin: 10/20/16 16:26 Dose: 70 mls/hr Lamotrigine (Lamictal) 25 mg GT Q12 [facility] Last Admin: 10/20/16 09:10 Dose: 25 mg Magnesium Hydroxide (Milk Of Magnesia) 30 ml PO DAILY PRN Metoprolol Tartrate (Lopressor) 25 mg GT Q12 [facility] Last Admin: 10/20/16 09:10 Dose: 25 mg Multivitamins/Vitamin C (Multi-Delyn Liquid) 5 ml PO DAILY [facility] Last Admin: 10/20/16 09:10 Dose: 5 ml Pantoprazole Sodium (Protonix Susp) 40 mg PO DAILY [facility] Last Admin: 10/20/16 09:10 Dose: 40 mg Rosuvastatin Calcium (Crestor) 2.5 mg PO HS [facility] Last Admin: 10/19/16 21:00 Dose: 2.5 mg Results - Vital Signs Recent Vital Signs: Last Vital Signs Temp 97.2 F L 10/20/16 15:55 Pulse 66 10/20/16 15:55 Resp 20 10/20/16 15:55 BP 123/65 10/20/16 15:55 Pulse Ox 93 L 10/20/16 15:55 - Labs Result Diagrams: 10/19/16 07:40 10/20/16 13:58 Labs: Laboratory Results - last 24 hr 10/19/16 10/19/16 10/19/16 08:41 21:07 23:54 Sodium Potassium Chloride Carbon Dioxide Anion Gap BUN Creatinine Est GFR ( Amer) Est GFR (Non-Af Amer) POC Glucose (mg/dL) 186 H Random Glucose Calcium Urine Osmolality 715 Ur Random Sodium 48 Ur Random Potassium 48.4 10/20/16 10/20/16 10/20/16 06:53 10:59 13:58 Sodium 152 H Potassium 4.3 Chloride 113 H Carbon Dioxide 23 Anion Gap 20 BUN 37 H Creatinine 1.2 Est GFR ( Amer) 52 Est GFR (Non-Af Amer) 43 POC Glucose (mg/dL) 146 H 137 H Random Glucose 142 H Calcium 8.4 L Urine Osmolality Ur Random Sodium Ur Random Potassium 10/20/16 16:14 Sodium Potassium Chloride Carbon Dioxide Anion Gap BUN Creatinine Est GFR ( Amer) Est GFR (Non-Af Amer) POC Glucose (mg/dL) 168 H Random Glucose Calcium Urine Osmolality Ur Random Sodium Ur Random Potassium
[2016-10-20] MEDS: Rosuvastatin Calcium 2.5 mg Tab PO SCH (21:53)
--- NOTE | 2016-10-21 01:27 | CON ---
DATE: 10/20/2016 CHIEF COMPLAINT AND REASON FOR CONSULTATION: Patient referred by Dr. Petersen for co-management of patient's history of advanced Alzheimer's dementia. HISTORY OF PRESENT ILLNESS: This is a case of 81-year-old female with a history of Alzheimer's dementia. Patient is currently a resident at [facility]. Patient was brought in for shortness of breath. Patient also was noted to be febrile, hypoxic and tachypneic. Patient was admitted for pneumonia as well as dehydration. Patient seen today with head lineman as patient speaks mostly Creole, but patient is also very poor historian despite with a head lineman conversing in Creole due to her dementia. Patient is currently not taking psych medications at times, but when seen today, patient is not complaining of pain, she is not short of breath, but noted to be very contracted. She does not know where she is and patient does not know even her age. She also is not complaining of shortness of breath, but seen in her room with PEG tube feeding. Patient is not agitated at this time. PAST MEDICAL HISTORY: History of Alzheimer's dementia currently on no medications, medical history or stated history of pneumonia, dehydration, atrial fibrillation, arthritis, CAD, DVT, hypertension, history of rheumatoid arthritis, history of seizure, patient is status post PEG tube feeding and history of dysphagia in the past. DRUG/ALCOHOL HISTORY: Denies any. ALLERGIES: THE PATIENT HAS NO KNOWN ALLERGIES. PSYCHOSOCIAL HISTORY: Patient is a resident of [facility]. MEDICATIONS: List of current medications include azithromycin, Crestor, Folic, Lamictal, Lopressor, Protonix, Zosyn. REVIEW OF SYSTEMS: Patient is alert, but confused, seen with head lineman, not in acute respiratory distress. She is not complaining of pain. Patient is tolerating PEG tube feeding. She is not agitated, was trying to converse, but she is noted to be very confused as stated, very contracted. Review of systems cannot be fully assessed due to her dementia. PHYSICAL EXAMINATION VITAL SIGNS: Temperature is 97.5, pulse rate is 94, blood pressure 134/74 respirations 19 and oxygen saturation 97% via nasal cannula. LABORATORY DATA: Review of labs, patient's sodium on admission was noted to be 157, elevated, creatinine is 1.5, BUN is 53. Urine is +2-4 protein, +2-4 urobilinogen, presence of bacteria, presence of urine WBC. MENTAL STATUS EXAMINATION: Elderly female who looks chronically ill, contracted, alert, but confused, oriented with the person, speech is spontaneous. Patient is conversing in Creole. Affect is restricted and mood is dysphoric. Thought process is confused. Thought content, no overt hallucinations, no suicidal ideation. Attention and memory seems to be impaired. Insight and judgment impaired. Impulse control is fair at this time. IMPRESSION: History of Alzheimer's dementia, with superimposed metabolic encephalopathy secondary to pneumonia and possible dehydration. PLAN AND RECOMMENDATION: Patient is seen, medications reviewed. Continue PEG tube feeding as ordered. Patient currently is manageable despite her dementia. I do suggest not to give patient on psych medication at this time. I last saw her in November of 2012, when the patient was admitted here with similar complaints. Patient was not given any psych medications at this time. She despite her confusion, patient is manageable. There is no need for patient to have any psych medication. Continue antibiotics as ordered. Continue treatment plan as outlined. Once patient is medically stable, patient can go back to the [facility] for [facility] care. Phi Hernández MD MTDYobani
[2016-10-21] MEDS: Albuterol 0.042% Inhal Sol (1.25 mg/3 mL) UD INH SCH ×3 (01:32→13:23)
[2016-10-21] MEDS: Piperacill/Tazo 3.375gm in Dex 3.375 GM/50 ML BAG IVPB SCH ×3 (02:45→14:03)
--- NOTE | 2016-10-21 03:17 | PN ---
DATE: 10/20/2016 SUBJECTIVE: Today, the patient is alert, is somewhat awake, but aphasic and mumbling. PHYSICAL EXAMINATION VITAL SIGNS: The patient has blood pressure of 123/65, pulse is 66, respirations 20, temperature 97.2. NECK: Stiff. LUNGS: Poor inspiratory effort. HEART: rhythm, at time tachycardic and irregular. ABDOMEN: Soft. The patient has PEG in place and patent. EXTREMITIES: There is contracture of the elbows, wrists, and knees. LABORATORY DATA: The patient has lab done. The labs show that the WBC was 9, hemoglobin 11.7, hematocrit 39.3, and platelet is 138. Chemistry: Showed sodium 162 , potassium 4.3, chloride 113, bicarb 23, BUN 37, creatinine 1.2, glucose 142, and calcium 8.4. ASSESSMENT AND PLAN: The plan is that I am going to continue the desired water and continue antibiotic therapy, and lab will be ordered for tomorrow. The microbiology and blood culture is still negative report. The case was reviewed and discussed with Arianna Blackmon, the nurse practitioner. Tha Petersen MD
[2016-10-21 04:02] LABS: CHLORIDE URINE 19 mmol/L (32-290)
--- NOTE | 2016-10-21 06:38 | CP.PCM.PN ---
Subjective - Date & Time of Evaluation Date of Evaluation: 10/21/16 Time of Evaluation: 06:33 - Subjective Subjective: PT AWAKE, NON VERBAL. NO DISTRESS. ROS ; OTHERWISE UNOBTAINABLE. Objective - Vital Signs/Intake and Output Vital Signs (last 24 hours): Temp Pulse Resp BP Pulse Ox 98.4 F 73 22 146/81 96 10/21/16 04:00 10/21/16 04:00 10/21/16 04:00 10/21/16 04:00 10/21/16 04:00 Intake and Output: 10/20/16 10/21/16 18:59 06:59 Intake Total 660 1260 Output Total 200 Balance 460 1260 - Medications Medications: Current Medications Acetaminophen (Tylenol 650mg/20.3ml Solution Ud) 650 mg GT Q6 PRN PRN Reason: Temperature Albuterol Sulfate (Albuterol 0.042% Inhal Carmen (1.25mg/3ml) Ud) 1.25 mg INH RQ6 [facility] Last Admin: 10/21/16 01:32 Dose: Not Given Folic Acid (Folic Acid) 1 mg GT DAILY [facility] Last Admin: 10/20/16 09:09 Dose: 1 mg Azithromycin 500 mg/ Sodium (Chloride) 250 mls @ 250 mls/hr IVPB DAILY [facility] Last Admin: 10/20/16 09:11 Dose: 250 mls/hr Piperacillin Sod/Tazobactam Sod (Zosyn 3.375 Gm Iv Premix) 3.375 gm in 50 mls @ 100 mls/hr IVPB Q6H [facility] Last Admin: 10/21/16 02:45 Dose: 100 mls/hr Dextrose (Dextrose 5% In Water 1000 Ml) 1,000 mls @ 70 mls/hr IV .[id number] [facility] Last Admin: 10/21/16 02:47 Dose: 70 mls/hr Lamotrigine (Lamictal) 25 mg GT Q12 [facility] Last Admin: 10/20/16 21:54 Dose: 25 mg Magnesium Hydroxide (Milk Of Magnesia) 30 ml PO DAILY PRN Metoprolol Tartrate (Lopressor) 25 mg GT Q12 [facility] Last Admin: 10/20/16 22:00 Dose: 25 mg Multivitamins/Vitamin C (Multi-Delyn Liquid) 5 ml PO DAILY [facility] Last Admin: 10/20/16 09:10 Dose: 5 ml Pantoprazole Sodium (Protonix Susp) 40 mg PO DAILY [facility] Last Admin: 10/20/16 09:10 Dose: 40 mg Rosuvastatin Calcium (Crestor) 2.5 mg PO HS [facility] Last Admin: 10/20/16 21:53 Dose: 2.5 mg - Labs Labs: 10/19/16 07:40 10/20/16 13:58 PT 34.3 SECONDS (9.7-12.2) H* 10/19/16 07:40 INR 2.9 10/19/16 07:40 APTT 44 SECONDS (21-34) H D 10/19/16 07:40 - Constitutional Appears: No Acute Distress, Chronically Ill - Head Exam Head Exam: ATRAUMATIC, NORMOCEPHALIC - Eye Exam Eye Exam: EOMI, Normal appearance - ENT Exam ENT Exam: Mucous Membranes Moist - Neck Exam Neck Exam: absent: Tenderness - Respiratory Exam Respiratory Exam: Decreased Breath Sounds, Rhonchi. absent: Accessory Muscle Use - Cardiovascular Exam Cardiovascular Exam: RRR, +S1, +S2 - GI/Abdominal Exam GI & Abdominal Exam: Soft. absent: Tenderness - Rectal Exam Rectal Exam: Deferred - Extremities Exam Extremities Exam: absent: Calf Tenderness, Pedal Edema Additional comments: UE/LE CONTRACTURES+ - Back Exam Back Exam: absent: CVA tenderness (L), CVA tenderness (R) - Neurological Exam Neurological Exam: Awake Additional comments: CONFUSED - Skin Skin Exam: absent: Rash Assessment and Plan (1) Respiratory failure Status: Acute (2) Atrial fibrillation Status: Acute (3) Hypertension Status: Acute (4) Hypernatremia Status: Acute (5) Pneumonia Status: Acute (6) Chronic renal insufficiency, stage II (mild) Status: Acute (7) Dementia Status: Acute - Assessment and Plan (Free Text) Assessment: RESP STATUS IMPROVING., CONT AGGRESSIVE PULM TOILET., NEB BD., SUCTIONING PRN., MONITOR O2 SAT. CXR REVIEWED. CONT AB PER ID. ON PEG FEEDINGS. PROG POOR. DISCUSSED WITH STAFF. I WILL BE AWAY 10/21 -10/27/16, DR PFEIFFER IS COVERING FOR ME.
[2016-10-21 08:23] VITALS: RESP 20; O2SAT 98
[2016-10-21 09:27] LABS: BASO # 0.1 K/uL (0.0-0.2); BASO % 0.9 % (0.0-2.0); EOS # 0.4 K/uL (0.0-0.7); EOS % 4.6 % (0.0-4.0); HEMATOCRIT 33.7 % (34.0-47.0); LYMPH # 1.1 K/uL (1.0-4.3); LYMPH % 14.7 % (20.0-40.0); MEAN CORPUSCULAR HEMOGLOBIN 26.8 pg (27.0-31.0); MEAN CORPUSCULAR HGB CONC 31.1 g/dL (33.0-37.0); MEAN PLATELET VOLUME 10.6 fL (7.2-11.7); MONO # 0.4 K/uL (0.0-0.8); MONO % 5.8 % (0.0-10.0); NRBC % 0.1 % (0.0-2.0); RED CELL DISTRIBUTION WIDTH 17.2 % (11.5-14.5); WHITE BLOOD COUNT 7.6 K/uL (4.8-10.8)
[2016-10-21 09:28] LABS: MEAN CELL VOLUME 86.1 fL (81.0-99.0)
[2016-10-21 09:30] LABS: POTASSIUM 3.5 mmol/L (3.6-5.2)
[2016-10-21 09:33] LABS: CALCIUM 7.9 mg/dl (8.6-10.4)
[2016-10-21] MEDS: Azithromycin 500 MG in Sodium Chloride 0.9% 250 ML IVPB SCH (09:38)
[2016-10-21] MEDS: Pantoprazole 40 mg Susp UD PO SCH (09:38)
[2016-10-21] MEDS: Multiple Vitamins Oral Solution PO SCH (09:38)
--- NOTE | 2016-10-21 10:18 | CON ---
RENAL CONSULTATION LOCATION: The patient is located room 671, bed A. REQUESTED BY: . REASON FOR RENAL CONSULTATION: Acute renal failure and also hypernatremia for further evaluation. HISTORY OF PRESENT ILLNESS: Ms. Arvizu is a 81 years old elderly -[place] female with the past medical history of Alzheimer's dementia, anemia, anxiety, arthritis, atrial fibrillation, CAD, cardiac arrhythmias, deep vein thrombosis, hypertension, hypercholesteremia, pancreatitis, rheumatoid arthritis, seizures and resident of skilled nursing, was admitted from the skilled nursing with chief complaints of shortness of breath, hypoxic and tachypneic and also found to be febrile in the emergency room. The patient was also found to have hypernatremia and admitted to the hospital for further management. Unable to get any history from the patient. Chart reviewed and history obtained from the review of the chart. PAST MEDICAL HISTORY: Significant for dementia, anemia, anxiety, arthritis, atrial fibrillation, CAD, DVT, gastritis, hypertension, hypercholesteremia, pancreatitis, rheumatoid arthritis, and seizures. PAST SURGICAL HISTORY: Status post endoscopy, status post PEG and pacemaker. ALLERGIES: NO KNOWN DRUG ALLERGIES. SOCIAL HISTORY: No smoking. No alcohol or drugs. She is a resident of skilled nursing. FAMILY HISTORY: Family history is not significant. CURRENT MEDICATIONS: Include albuterol inhaler q. 6 hours., azithromycin 500 mg daily, Crestor 2.5 mg at bedtime, IV fluids D5W at 70 mL per hour, folic acid 1 mg by G-tube daily, Lamictal 25 mg by G-tube q. 12 hours., Lopressor 25 mg by G-tube q. 12 hours, milk of magnesia, multivitamins liquid 5 mL daily, Protonix 40 mg daily and Zosyn 3.375 grams q. 6 hours. and warfarin 3 mg. REVIEW OF SYSTEMS: Significant for shortness of breath, tachypneic, hypoxia and fever and contracted both upper and lower extremities. All other review systems as per HPI. PHYSICAL EXAMINATION: VITAL SIGNS: As follows, blood pressure of 123/65, pulse of 66, respirations of 20, temperature of 97.2, saturation of 93% and on 10/18/2016, T-max is 101.8. Height is 5 feet, 8 inches and the weight is 153 pounds. GENERAL: Ms. Arvizu is a 81 years old elderly -[place] female, moderately built, moderately nourished, not in distress. HEENT: Pupils are normal and reactive to light and accommodation. Conjunctivae are pink. Sclerae are anicteric. Tongue is slightly dry. Trachea is midline. LUNGS: Symmetric on both sides. Bilateral breath sounds present. No crackles. CARDIOVASCULAR SYSTEM: [place] at the fifth intercostal space, midclavicular line. S1 and S2 audible No murmur or gallop. ABDOMEN: Normal in appearance. The patient has PEG tube present. Abdomen is soft and tympanic. No guarding. No rigidity. No hepatosplenomegaly. CENTRAL NERVOUS SYSTEM: The patient is awake, try to verbalize, unable to communicate. Sensory system is intact. Motor: Bilateral contracts upper and lower extremities. EXTREMITIES: No cyanosis, no clubbing, and no edema. LABORATORY DATA: Includes as follows as of 10/20/2016, sodium of 152, potassium of 4.3, chloride of 113, CO2 of 23, BUN of 37, and creatinine of 1.2. Glucose of 142 and calcium of 8.4. As of WBC is 8.6, hemoglobin is 14.7, hematocrit is 47.9 and platelets are 152. Her PT is 31.9. Sodium of 155, potassium of 5.9, chloride of 114, CO2 of 22, BUN of 57, creatinine of 1.5, glucose of 158, and calcium of 8.4. As of 10/19/2016, sodium of 157, potassium of 4.7, chloride of 117, CO2 of 25, BUN of 53, and creatinine of 1.7. Glucose of 127, calcium of 8.1, total protein of 6.5 and albumin is 3.1. Urinalysis as of 10/18/2016, yellow and hazy; pH of 5, specific gravity 1.025, and protein 2+, glucose normal, ketones negative, blood negative, nitrites negative, bilirubin negative, and urobilinogen 2.0. Leukocyte esterase trace, WBC 12, RBC negative, squamous epithelial cells 1, and bacteria few. As of 10/19/2016, urine osmolality of 715, urine sodium is 48 and urine potassium is 48.4. Blood culture x2 is negative, day number 1. IMAGING DATA: Chest x-ray as of 10/18/2016. Impression: Poor inspiration with low lung volumes, minor crowded, bronchovascular marking and mild bibasilar atelectasis, developing lower lobe infiltrates could being excluded, follow up radiographs. 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 A follow up CT scan of the chest could be performed to confirm. No changes single lead pacemaker. ASSESSMENT: In summary, Ms. Arvizu is a 81 years old elderly -[place] female with a history of hypertension, hyperlipidemia, coronary artery disease, cardiac arrhythmias, atrial fibrillation status post pacemaker, rheumatoid arthritis, seizures, dementia, resident of skilled nursing with contracted both upper and lower extremities, status post percutaneous endoscopic gastrostomy tube with shortness of breath, hypoxia, tachypneic and fever. Increased BUN, creatinine and increased serum sodium. Hypernatremia secondary to intravascular depletion and dehydration. PLAN: 1. Continue IV fluids, D5W at 70 mL per hour. 2. Hypertensive blood pressure, stable. 3. Status post fever. Continue Zosyn and follow up blood culture and repeat BMP daily. Avoid mixing antibiotics with the half normal saline and normal saline if compatible mix antibiotics with D5W. We will follow with you. Thank you for allowing me to participate in your patient's care. Isabel Garcia MD
[2016-10-21] MEDS ORDERED: Potassium Chloride 20 mEq/15 ml LIQ UD PO ONE (11:00)
--- NOTE | 2016-10-21 12:34 | CP.PCM.PN ---
Subjective - Date & Time of Evaluation Date of Evaluation: 10/21/16 Time of Evaluation: 12:33 - Subjective Subjective: pt seen and jackiemined, follow up consult is dictated #[id number] c/w ivf d5w at 70 ml/hr x 24 hrs Objective - Vital Signs/Intake and Output Vital Signs (last 24 hours): Temp Pulse Resp BP Pulse Ox 97.4 F L 73 20 133/44 L 98 10/21/16 07:25 10/21/16 07:25 10/21/16 07:25 10/21/16 09:37 10/21/16 07:25 Intake and Output: 10/21/16 10/21/16 06:59 18:59 Intake Total 2720 Output Total 350 Balance 2370 - Medications Medications: Current Medications Acetaminophen (Tylenol 650mg/20.3ml Solution Ud) 650 mg GT Q6 PRN PRN Reason: Temperature Albuterol Sulfate (Albuterol 0.042% Inhal Carmen (1.25mg/3ml) Ud) 1.25 mg INH RQ6 [facility] Last Admin: 10/21/16 08:03 Dose: 1.25 mg Folic Acid (Folic Acid) 1 mg GT DAILY [facility] Last Admin: 10/21/16 09:37 Dose: 1 mg Azithromycin 500 mg/ Sodium (Chloride) 250 mls @ 250 mls/hr IVPB DAILY [facility] Last Admin: 10/21/16 09:38 Dose: 250 mls/hr Piperacillin Sod/Tazobactam Sod (Zosyn 3.375 Gm Iv Premix) 3.375 gm in 50 mls @ 100 mls/hr IVPB Q6H [facility] Last Admin: 10/21/16 08:08 Dose: 100 mls/hr Dextrose (Dextrose 5% In Water 1000 Ml) 1,000 mls @ 70 mls/hr IV .[id number] [facility] Last Admin: 10/21/16 02:47 Dose: 70 mls/hr Lamotrigine (Lamictal) 25 mg GT Q12 [facility] Last Admin: 10/21/16 09:37 Dose: 25 mg Magnesium Hydroxide (Milk Of Magnesia) 30 ml PO DAILY PRN Metoprolol Tartrate (Lopressor) 25 mg GT Q12 [facility] Last Admin: 10/21/16 09:37 Dose: 25 mg Multivitamins/Vitamin C (Multi-Delyn Liquid) 5 ml PO DAILY [facility] Last Admin: 10/21/16 09:38 Dose: 5 ml Pantoprazole Sodium (Protonix Susp) 40 mg PO DAILY [facility] Last Admin: 10/21/16 09:38 Dose: 40 mg Rosuvastatin Calcium (Crestor) 2.5 mg PO HS [facility] Last Admin: 10/20/16 21:53 Dose: 2.5 mg - Labs Labs: 10/21/16 09:18 10/21/16 09:18 PT 34.3 SECONDS (9.7-12.2) H* 10/19/16 07:40 INR 2.9 10/19/16 07:40 APTT 44 SECONDS (21-34) H D 10/19/16 07:40
--- NOTE | 2016-10-21 13:07 | PN ---
DATE: 10/21/2016 SUBJECTIVE: The patient is seen. The patient is still confused, but more alert and verbal. Review of her labs showed her last sodium is now 145 from 152. Her potassium; however, is 3.5 is low. The patient has been IV fluid and her creatinine is 1.1. Psych [place], the patient has advanced dementia and was taking Lamictal. The patient's dementia is so advanced, there is no role of meds with dementia at this time. The patient may benefit and become supportive care. PHYSICAL EXAMINATION: GENERAL: The patient is alert, but confused, in her room, mumbling skin, no diaphoresis. VITAL SIGNS: Temperature is 97.4, pulse rate 73, blood pressure 133/44, respirations 20, and oxygen sat is 98%. HEENT: No headache or dizziness. NECK: Supple. RESPIRATORY: No dyspnea. CARDIOVASCULAR: No chest pain. GASTROINTESTINAL: Has PEG tube. EXTREMITIES: The patient is very contractive. MUSCULOSKELETAL/NEUROLOGY: Alert, appears to have confusion. GENITOURINARY: No dysuria. MENTAL STATUS EXAMINATION: Elderly female seen in her room, oriented x1. Mood is brighter. Affect is reactive. Speech, the patient is mumbling. Thought process is confused. Thought content is psychosis. No suicidal ideation. Attention and memory is impaired. Insight and judgement limited. Impulse control is fair at this time. IMPRESSION: Metabolic encephalopathy secondary to pneumonia, dehydration, improving as well as serosa dementia Alzheimer's type with mood changes. PLAN AND RECOMMENDATION: The patient is seen, meds reviewed. Continue PEG tube feeding. Continue antibiotics as ordered. Monitor electrolytes. Once the patient is medically stable, she can go back to the detention for watermaster care. The patient is currently taking azithromycin and also given fluid. Psych [place], the patient is only taking Lamictal, which is for seizure. Phi Hernández MD
--- NOTE | 2016-10-21 15:20 | RAD ---
HISTORY: f/u pneumonia COMPARISON: 10/18/2016 1940 hour FINDINGS: LUNGS: Lung volumes are shallow as before. This likely at least is part is contributing to the prominent central pulmonary vasculature. Background chronic pulmonary venous congestion is still suspect. And this appears similar PLEURA: Bilateral pleural effusions are suspect the right appears larger than the left. Since the prior 10/18/2016 study I am going to the size of the right pleural effusion appears slightly increased. Concomitant right pleural thickening is consistent with this. Minimal loculated fluid on the right is not excluded. . No pneumothorax seen Compared the prior study, biapical pleural thickening is also suggested Some of this could be contributed to summation soft tissues the chin appears to be pointing down more inferiorly than it did before Left apical asymmetrical pleural thickening is similar in appearance with an earlier study 08/02/2015. The aortic knob is calcified and prominent yet unchanged compared to 2016. Left apical caps can be seen with aortic dissections - no change to suggest any interval aortic dissection compared to the prior 08/02/2015 studies suggest CARDIOVASCULAR: Cardiomegaly. Pulmonary venous congestion suspect as above. Other findings regarding the left apical pleural thickening appearance are noted above. Single lead pacemaker device OSSEOUS STRUCTURES: No significant abnormalities. VISUALIZED UPPER ABDOMEN: Normal. OTHER FINDINGS: None. IMPRESSION: The cardiomegaly prominent thoracic aorta, left apical pleural thickening, small left pleural effusion and mild diffuse pulmonary venous congestion and shallow inspiration are similar appearing The right pleural effusion/thickening appears increased. Right apical pleural thickening soft tissue changes are increased compared the prior study the changes on the right could be due to ages in positioning and summation of soft tissues. Given the shallow lung volumes, concomitant basilar mild atelectasis and/or infiltrate mainly in the left nontender excluded. The left hemidiaphragm however is better a shaded than it was previously. No worsening infiltrates suggested
[2016-10-21 15:59] VITALS: BP 138/91; TEMP 96
--- NOTE | 2016-10-21 16:47 | CP.PCM.PN ---
Subjective - Date & Time of Evaluation Date of Evaluation: 10/21/16 Time of Evaluation: 10:40 - Subjective Subjective: Pt seen an d examined today, awake , alert, non verbal, comfortable No overnight events reported by RN A FEBRILE Objective - Vital Signs/Intake and Output Vital Signs (last 24 hours): Temp Pulse Resp BP Pulse Ox 96 F L 63 20 138/91 H 98 10/21/16 15:00 10/21/16 15:00 10/21/16 15:00 10/21/16 15:00 10/21/16 15:00 Intake and Output: 10/21/16 10/21/16 06:59 18:59 Intake Total 2720 900 Output Total 350 400 Balance 2370 500 - Medications Medications: Current Medications Acetaminophen (Tylenol 650mg/20.3ml Solution Ud) 650 mg GT Q6 PRN PRN Reason: Temperature Albuterol Sulfate (Albuterol 0.042% Inhal Carmen (1.25mg/3ml) Ud) 1.25 mg INH RQ6 [facility] Last Admin: 10/21/16 13:23 Dose: 1.25 mg Folic Acid (Folic Acid) 1 mg GT DAILY [facility] Last Admin: 10/21/16 09:37 Dose: 1 mg Azithromycin 500 mg/ Sodium (Chloride) 250 mls @ 250 mls/hr IVPB DAILY [facility] Last Admin: 10/21/16 09:38 Dose: 250 mls/hr Piperacillin Sod/Tazobactam Sod (Zosyn 3.375 Gm Iv Premix) 3.375 gm in 50 mls @ 100 mls/hr IVPB Q6H [facility] Last Admin: 10/21/16 14:03 Dose: 100 mls/hr Dextrose (Dextrose 5% In Water 1000 Ml) 1,000 mls @ 70 mls/hr IV .[id number] [facility] Last Admin: 10/21/16 02:47 Dose: 70 mls/hr Lamotrigine (Lamictal) 25 mg GT Q12 [facility] Last Admin: 10/21/16 09:37 Dose: 25 mg Magnesium Hydroxide (Milk Of Magnesia) 30 ml PO DAILY PRN Metoprolol Tartrate (Lopressor) 25 mg GT Q12 [facility] Last Admin: 10/21/16 09:37 Dose: 25 mg Multivitamins/Vitamin C (Multi-Delyn Liquid) 5 ml PO DAILY [facility] Last Admin: 10/21/16 09:38 Dose: 5 ml Pantoprazole Sodium (Protonix Susp) 40 mg PO DAILY [facility] Last Admin: 10/21/16 09:38 Dose: 40 mg Rosuvastatin Calcium (Crestor) 2.5 mg PO HS [facility] Last Admin: 10/20/16 21:53 Dose: 2.5 mg - Labs Labs: 10/21/16 09:18 10/21/16 09:18 PT 34.3 SECONDS (9.7-12.2) H* 10/19/16 07:40 INR 2.9 10/19/16 07:40 APTT 44 SECONDS (21-34) H D 10/19/16 07:40 - Constitutional Appears: Well, No Acute Distress - ENT Exam ENT Exam: Mucous Membranes Moist - Respiratory Exam Respiratory Exam: Decreased Breath Sounds, Rhonchi, NORMAL BREATHING PATTERN - Cardiovascular Exam Cardiovascular Exam: REGULAR RHYTHM, +S1, +S2 Assessment and Plan - Assessment and Plan (Free Text) Assessment: a/p 81 yr old female admitted from [place] with hypoxia/ Pneumonia,/ Hypernatremia spo2 96-98 % on 2 lit of oxygen NA improved with hydration - 145 <155<157 BLOOD culture urine culture - negative so far seen by Dr. Petersen today repeat CXR done and result relayed to Dr. Petersen d/w Dr. Petersen, stable for discharge to [facility] today na dDr. Petersen will follow the patient at [place]
--- NOTE | 2016-10-21 16:52 | CARD ---
APPROVED REPORT EKG Measurement Heart [id number] <Conclusion> Normal sinus rhythm LVH with repolarization abnormality. Prolonged QT Abnormal ECG
[2016-10-21 19:01] VITALS: PULSE 80
--- NOTE | 2016-10-22 05:24 | CON ---
DATE: 10/21/2016 FOLLOWUP RENAL CONSULTATION LOCATION: The patient is located room 671, Bed A. REQUESTING BY: Tha Petersen MD REASON FOR RENAL CONSULTATION: Hypernatremia, prerenal azotemia. HISTORY OF PRESENT ILLNESS: Mrs. Anu Arvizu is a 81 years old elderly female, resident of residential, with a past medical history of significant for Alzheimer's dementia, anemia, anxiety, arthritis, AFib, CAD, DVT, hypertension, hyperlipidemia, pancreatitis, rheumatoid arthritis, seizures, status post pacemaker and PEG, was admitted from the residential with shortness of breath, hypoxic and tachypneic and found to be febrile in the emergency room. The patient was also found to have hypernatremia and increased BUN and creatinine. Started on IV fluids, D5W at 70-80 mL per hour and serum sodium is improving nicely. The patient is more alert, dysarthric and try to verbalize, not in acute distress. The patient screaming most of the time. PHYSICAL EXAMINATION: VITAL SIGNS: This afternoon as follows: Blood pressure 133/44, pulse 82, respirations 20, temperature 96, saturation 98%. Height 5 feet, 8 inches and weight is 153 pounds. GENERAL: Mrs. Arvizu is a 81 years old elderly -[place] female, bed ridden, with contracted both upper and lower extremities, not in distress, screaming on and off. HEENT: Pupils are normal, reactive to light and accommodation. Conjunctivae are pink. Sclerae are anicteric. Tongue is moist. Trachea is midline. LUNGS: Symmetric on both sides. Bilateral breath sounds present. Clear to auscultation. CARDIOVASCULAR SYSTEM: [place] at the fifth intercostal space, midclavicular line. S1 and S2 audible No murmur or gallop. ABDOMEN: Normal in appearance. The patient has PEG tube. Soft and tympanic. No guarding. No rigidity. No hepatosplenomegaly. CENTRAL NERVOUS SYSTEM: The patient is awake, and confused. Sensory system is grossly within normal limits. Motor: Contracture, both upper and lower extremities. EXTREMITIES: No cyanosis, no clubbing, no edema. MEDICATIONS: Include as follows: Albuterol inhaler q. 6 hours., azithromycin 500 mg daily, Crestor 2.5 mg p.o. at bedtime, IV fluids D5W at 70 mL per hour, folic acid 1 mg by G-tube daily, Lamictal 25 mg by G-tube q. 12 hours, Lopressor 25 mg q. 12 hours, Milk of Magnesia 30 mL p.o. daily, multivitamin one tablet 5 mL liquid daily, KCl 40 mEq by PEG daily times 1 dose, pantoprazole 40 mg daily, Tylenol, and Zosyn 3.375 grams IV q. 6 hours. LABORATORY DATA: WBC is 7.6, hemoglobin 10.5, hematocrit 33.7, platelets of 133. Sodium 145, potassium 3.5, chloride 106, CO2 of 25, BUN 26, creatinine 1.1, glucose 148, and calcium 7.9. Urine culture as of 722, no growth and blood culture times 2 negative day 2 from 10/18/2016. ASSESSMENT AND PLAN: In summary, Mrs. Arvizu is a 81 years old elderly female, resident of residential, with dementia, cardiac arrhythmias, CAD, status post pacemaker, seizures, contracted both upper and lower extremities with increased BUN and creatinine with increased serum sodium, on IV hydration. 1. Hypernatremia secondary to intravascular volume depletion secondary to dehydration. 2. Prerenal azotemia, renal function is improving and also serum sodium improving with gentle IV hydration. Continue D5W and also free water 200 mL by PEG q. 6 hours. Thank you for allowing me to participate in your patient's care. Isabel Garcia MD
--- NOTE | 2016-10-22 08:58 | PN ---
SUBJECTIVE: Today, the patient is more alert, more awake, but still aphasic, but turns the head by stimuli. The patient is in no apparent distress. PHYSICAL EXAMINATION: VITAL SIGNS: The patient has blood pressure of 122/54, now 138/91, pulse is 82, respirations are 20, temperature 98.5. HEENT: Head has stiffness as usual. NECK: Stiffness. LUNGS: No rales noted. Very poor inspiratory effort. HEART: Regular rate and rhythm. ABDOMEN: Positive bowel sounds. PEG is patent. EXTREMITIES: There is contracture of the joints including the elbows, the wrists, and the knees. LABORATORY DATA: The patient had some tests done. The labs showed WBC of 7.6, hemoglobin 10.5, hematocrit 33.7, and platelets are 133. Chemistry showed sodium of 145, potassium 3.5, chloride 106, bicarb 25, BUN 26, creatinine 1.1, glucose 148. Coagulation showed PT is 34.3 and INR 2.9. Also, the patient had a chest x-ray done today which showed cardiomegaly, thoracic aorta, left apical pleural thickening, small left pleural effusion, mild diffuse pulmonary venous congestion, and shallow respirations . ASSESSMENT AND PLAN: So, at this point, the patient also had a consult with Dr. Garcia, and also with Dr. Phi Hernández. The plan is that we are going to continue the current medication, and we will possibly discharge the patient to the longterm as per all the consultants. Tha Petersen MD
--- NOTE | 2016-10-22 16:15 | DS ---
HISTORY OF PRESENT ILLNESS: The patient is a 81 years old female with history of atrial fibrillation, Alzheimer, arthritis, CVA, anemia, hypertension,and seizures disorder. The patient was brought to the emergency room from long-term because the patient was found to be short of breath and also in diaphoresis. Patient was seen in the emergency room, she was admitted because she was found to be very dehydrated and also had some abnormal blood test and abnormal chest x-ray. Patient has a lot of contracture of the joint including the elbows, knees, wrist, hands, ankles, and neck. PHYSICAL EXAMINATION: GENERAL: The patient is somewhat aphasic, all time, and otherwise drowsy. Patient has received medication including IV antibiotic and also IV fluid. Patient had a consult with Dr. Phi Hernández and , and Dr. Jenkins. Now, the patient has somewhat improved, she is more awake, and sodium now was 145 and potassium 3.5, which is a reasonable control. At this point, we feel that the patient may continue antibiotic IV as in the long-term and also continue the current treatment in the long-term. We discharged the patient home and the case reviewed , the nurse practitioner. Tha Petersen MD
== END 2016-10-21 18:15 | DRG 871 ==
LOC: C.ER 19:24 → C.9E 21:25 → C.6T 22:25
PROVIDERS: ADMIT Specialist; ATTEND Specialist
DX: A41.9 Sepsis, unspecified organism (principal); J18.9 Pneumonia, unspecified organism; J96.91 Respiratory failure, unspecified with hypoxia; G93.41 Metabolic encephalopathy; E87.0 Hyperosmolality and hypernatremia; E86.0 Dehydration; G30.9 Alzheimer's disease, unspecified; I48.91 Unspecified atrial fibrillation; F02.80 Dementia in other diseases classified elsewhere, unspecified severity, without behavioral disturbance, psychotic disturbance, mood disturbance, and anxiety; R47.01 Aphasia; E78.5 Hyperlipidemia, unspecified; E78.00 Pure hypercholesterolemia, unspecified; I12.9 Hypertensive chronic kidney disease with stage 1 through stage 4 chronic kidney disease, or unspecified chronic kidney disease; I25.10 Atherosclerotic heart disease of native coronary artery without angina pectoris; J45.909 Unspecified asthma, uncomplicated; K29.70 Gastritis, unspecified, without bleeding; M06.9 Rheumatoid arthritis, unspecified; M19.90 Unspecified osteoarthritis, unspecified site; M24.50 Contracture, unspecified joint; N18.2 Chronic kidney disease, stage 2 (mild); Z86.73 Personal history of transient ischemic attack (TIA), and cerebral infarction without residual deficits; Z93.1 Gastrostomy status; Z95.0 Presence of cardiac pacemaker

== ENCOUNTER 2017-07-21 07:19 | Day surgery (SDC) | payer MEDICARE, MEDICAID ==
--- NOTE | 2017-07-21 08:40 | CP.SDSHP ---
Same Day Surgery H & P - History Proposed Procedure: Egd with PEG removal and replacement Pre-Op Diagnosis: PEG Malfunction. Dementia - Previous Medical/Surgical History Cardiac: ASHD/CAD, Arrhythmia, Other (hyperlipidemia, Gastritis) Neuro: TIA/CVA, Other (Dementia, ) Misc: Anemia Previous Surgical History: Peg tube x 3 - Allergies Allergies: Allergies No Known Allergies Allergy (Verified 07/21/17 08:07) - Physical Exam Mental Status: Alert & Oriented x3 Neuro: WNL Heart: WNL Lungs: WNL GI: Other (GT in place in poor condition with degraded tube integrity) - Impression Impression: Peg tube malfunction. Dementia/CVA Pt. Evaluated Today:Candidate for Anesthesia & Procedure: Yes - Date & Time Date: 07/21/17 Time: 08:41 Short Stay Discharge - Short Stay Discharge Admitting Diagnosis/Reason for Visit: GERD / GASTROSTOMY MALFUNCTION / ALZHEIMER 'S Disposition: HOME/ ROUTINE
[2017-07-21] MEDS ORDERED: Lactated Ringer's 1,000 ML IV ONE (09:05)
[2017-07-21] MEDS ORDERED: Propofol 10 mg/ml Inj (20 ML) ONE (09:08)
[2017-07-21] MEDS ORDERED: Etomidate 20 mg/10ml Inj IV ONE (09:08)
[2017-07-21 09:48] VITALS: O2SAT 100
[2017-07-21 12:18] VITALS: BP 158/89; PULSE 79; RESP 17; TEMP 97.2
== END 2017-07-21 11:35 | disposition home or self-care (01) ==
LOC: C.ENDO 07:19
PROVIDERS: ATTEND Internal Medicine Gastroenterology
DX: K94.23 Gastrostomy malfunction (principal); G30.9 Alzheimer's disease, unspecified; K21.9 Gastro-esophageal reflux disease without esophagitis; F02.80 Dementia in other diseases classified elsewhere, unspecified severity, without behavioral disturbance, psychotic disturbance, mood disturbance, and anxiety; K44.9 Diaphragmatic hernia without obstruction or gangrene; D64.9 Anemia, unspecified; E78.5 Hyperlipidemia, unspecified; I25.10 Atherosclerotic heart disease of native coronary artery without angina pectoris; Z86.73 Personal history of transient ischemic attack (TIA), and cerebral infarction without residual deficits
CPT/HCPCS: 43246; 88300; J2704; J3010; J7120